=== PATIENT | male | born 1945 | race Caucasian/White ===

== ENCOUNTER 2020-09-13 14:00 | Outpatient (RCR) | payer MEDICARE, SELFPAY ==
[2020-09-13] MEDS: COVID-19 VACC, MRNA(PFIZER)/PF 30 MCG/0.3 ML SYRINGE IM (11:26)
[2020-10-04] MEDS: COVID-19 VACC, MRNA(PFIZER)/PF 30 MCG/0.3 ML SYRINGE IM (11:13)
== END 2020-09-13 23:59 ==
LOC: IMMUN 14:00
PROVIDERS: Visit Provider Family Medicine
DX: Z23 Encounter for immunization (principal)
CPT/HCPCS: 0001A; 0002A; 91300